=== PATIENT | male | born 1960 | race Caucasian/White ===

== ENCOUNTER 2019-01-10 15:43 | Emergency (ER) | payer BC, SELFPAY ==
[2019-01-10 15:47] VITALS: BP 139/67; PULSE 74; RESP 18; TEMP 36.8; O2SAT 97; BMI 26.6
--- NOTE | 2019-01-10 15:55 | ED_ITS ---
HPI - General Adult General Chief complaint: Trauma Stated complaint: fell off ladder Time Seen by Provider: 01/10/19 15:50 Source: patient Mode of arrival: Wheelchair Limitations: no limitations History of Present Illness HPI narrative: Patient is a 58-year-old male who was on a ladder when the ladder slipped out from under him. He states that he landed on his right ankle and right knee and left hand. Has had pain in his right knee and right ankle since then. He states that his left hand has improved since the time of the fall. Occurred several hours prior to arrival here in the emergency department. He did not hit his head. Has chronic neck pain and there is no change in this. Patient states that he fell 7 8 ft but he is unsure. Modified trauma was called. Related Data Home Medications Medication Instructions Recorded Confirmed Fish Oil 1 cap PO DAILY 01/10/19 01/10/19 divalproex 1,000 mg PO QPM 01/10/19 01/10/19 divalproex 750 mg PO QAM 01/10/19 01/10/19 melatonin 1.5 mg PO BEDTIME PRN 01/10/19 01/10/19 Allergies Allergy/AdvReac Type Severity Reaction Status Date / Time Penicillins [PENICILLINS] Allergy Unknown Verified 01/10/19 16:01 Review of Systems Constitutional Constitutional: Denies fever(s) and Denies headache(s) ENT Ears, Nose, Mouth, and Throat: Denies headache(s) Cardiovascular Cardiovascular: Denies chest pain and Denies dyspnea Respiratory Respiratory: Denies dyspnea Gastrointestinal Gastrointestinal: Denies abdominal pain, Denies nausea and Denies vomiting Musculoskeletal Comments: Left hand pain, right knee pain, right ankle pain Integumentary/Breasts Skin/Breast: Denies lesions and Denies rash Neurologic Neurologic: Denies behavioral changes and Denies headache(s) Psychiatric Psychiatric: Denies behavioral changes Hematologic/Lymphatic Hematologic/Lymphatic: Denies easy bleeding and Denies easy bruising Patient History Medical History Diverticulitis (Inactive) Left shoulder pain (Inactive) Tendonitis of left rotator cuff (Inactive) Social History Smoking Status: Current every day smoker Exam Initial Vital Signs Initial Vital Signs: Vital Signs Temperature 98.2 F 01/10/19 15:47 Pulse Rate 74 01/10/19 15:47 Respiratory Rate 18 01/10/19 15:47 Blood Pressure 139/67 01/10/19 15:47 Pulse Oximetry 97 01/10/19 15:47 Const General: cooperative and comfortable Orientation: alert, awake and oriented x3 HENMT Head: normal to inspection and normocephalic Resp Effort & Inspection: normal respiratory effort Auscultation: clear to auscultation bilaterally Cardio Rate: regular rate Rhythm: regular rhythm Back/Spine/Pelvis Cervical Spine: No collar present, No cervical spinal tenderness and No step off deformity Skin Other: Superficial abrasion to the outside left ankle Neuro General: alert, awake and oriented x3 Extrem Other: Patient with tenderness to palpation throughout the right knee. He is able to do a straight leg raise. Patient also with tenderness to palpation throughout the right ankle. Pain with flexion and extension. Patient does have some tenderness to palpation of the palm of his left hand however is able to flex and extend his wrist and his fingers unremarkable. The rest of his musculoskeletal exam is unremarkable Psych Appearance: grossly normal and well kempt Procedures Orthopedic Splinting/Casting Injury #1: Side: right Lower Extremity Injury Location: knee Lower Extremity Immobilizer: Tim wrap Other Orthopedic Equipment: crutches Post splinting neuro exam: intact Post splinting vascular exam: intact Placed by: Nursing Injury #2: Side: right Lower Extremity Injury Location: ankle Lower Extremity Immobilizer: Tim wrap Other Orthopedic Equipment: crutches Post splinting neuro exam: intact Post splinting vascular exam: intact Placed by: Nursing Scores GCS [place] coma scale eye opening: Spontaneous Pina coma scale verbal response: Orientated Pina coma scale motor response: Obey commands [place] coma scale total score: 15 Nexus Score for C-Spine Focal Neurologic deficit present: No Midline spinal tenderness present: No Altered level of conciousness present: No Intoxication present: No Distracting Injury Present: No Nexus Criteria for C-spine: 0 Course Orders Ordered: ED Orders 01/10/19 15:55 XR ankle RT min 3V Stat XR knee RT 3V Stat Vital Signs Vital signs: Vital Signs - 8 hr 01/10/19 15:47 01/10/19 16:45 01/10/19 17:00 Temperature 98.2 F Pulse Rate 74 72 89 Respiratory Rate 18 17 18 Blood Pressure 139/67 Blood Pressure [Right Arm] 124/65 126/100 H Pulse Oximetry 97 96 98 Medical Decision Making Imaging Data Ankle x-ray: Radiologist's impression: [address] [address] XRay Report Signed Patient: Luis Angel Theodore [facility]#: [id number] : 1960Acct:[id number] Age/Sex: 58 / MDate of Service: 01/10/19 Loc: ED Accession Number: [id number] Procedure: XR ankle RT min 3V Ordering Provider: Srini Sanders D.O. PROCEDURE: XR ANKLE RT MIN 3V INDICATIONS: pain after fall TECHNIQUE: 3 views of the ankle were acquired. COMPARISON: None. FINDINGS: Bones: No fractures or dislocations. Ankle mortise is normally aligned. No suspicious bony lesions. Mild degenerative changes are present involving the tibiotalar and talonavicular joints. There may be a small developing plantar calcaneal spur. Soft tissues: No tibiotalar joint effusion. Achilles tendon appears normal. IMPRESSION: Mild degenerative changes of the right ankle. No fractures. Dictated by: Franklyn Bowman M.D. on 01/10/2019 at 15:50 Approved by: Franklyn Bowman M.D. on 01/10/2019 at 15:55 Knee x-ray: Radiologist's impression: [address] [address] XRay Report Signed Patient: Luis Angel Theodore [facility]#: [id number] : 1960Acct:[id number] Age/Sex: 58 / MDate of Service: 01/10/19 Loc: ED Accession Number: [id number] Procedure: XR knee RT 3V Ordering Provider: Srini Sanders D.O. PROCEDURE: XR KNEE RT 3V INDICATIONS: pain after fall TECHNIQUE: During views of the knee were acquired. COMPARISON: None. FINDINGS: Bones: No fractures or dislocations. No suspicious bony lesions. Degenerative changes of the patellofemoral compartment appear to be present. The joint spaces within the medial and lateral tibiofemoral compartments appear well-maintained. Soft tissues: No joint effusion. No suspicious soft tissue calcifications. Prepatellar soft tissue edema is noted. IMPRESSION: 1. Mild degenerative changes of the right knee. No fractures. 2. Prepatellar soft tissue swelling. Dictated by: Franklyn Bowman M.D. on 01/10/2019 at 15:49 Approved by: Franklyn Bowman M.D. on 01/10/2019 at 15:50 [facility] Narrative Medical decision making narrative: No fractures noted on any of his x-rays. The abrasion on his left ankle needs no intervention. He has no other musculoskeletal findings on his exam. His abdomen is tender. His neck is tender but this is not new for him. His back is unremarkable. Will hold on further workup for now. Patient was sent home with Tim bandages and crutches. He is given return precautions. He expressed understanding and agreement plan. Discharge Plan Departure Patient Disposition: Home Clinical Impression: Acute knee pain Qualifiers: Laterality: right Qualified Code(s): M25.561 - Pain in right knee Ankle pain, right Qualifiers: Chronicity: acute Qualified Code(s): M25.571 - Pain in right ankle and joints of right foot Fall Qualifiers: Encounter type: initial encounter Qualified Code(s): W19.XXXA - Unspecified fall, initial encounter Discharge Date/Time: 01/10/19 17:46 Prescriptions: No Action divalproex 500 mg tablet,delayed release (DR/EC) 1,000 mg PO QPM RF: 0 divalproex 500 mg tablet,delayed release (DR/EC) 750 mg PO QAM RF: 0 melatonin 1 mg Tablet 1.5 mg PO BEDTIME PRN (Reason: Insomnia) RF: 0 Fish Oil 1 cap PO DAILY RF: 0 Referrals: Lance Snyder MD [Primary Care Provider] -
[2019-01-10 16:45] VITALS: BP 124/65; PULSE 72; RESP 17; O2SAT 96
[2019-01-10 17:00] VITALS: BP 126/100; PULSE 89; RESP 18; O2SAT 98
== END 2019-01-10 17:46 | disposition home or self-care (01) ==
PROVIDERS: Emergency Provider Emergency Medicine; Family Provider Internal Medicine; PCP Internal Medicine
DX: M25.561 Pain in right knee (principal); M25.571 Pain in right ankle and joints of right foot; W11.XXXA Fall on and from ladder, initial encounter
CPT/HCPCS: 73562; 73610; 99283

== ENCOUNTER → 2020-08-14 09:47 | Outpatient (CLI) | payer BC, SELFPAY ==
[2020-08-14 19:27] LABS: Add Manual Diff / Slide Review NO; Basophils Absolute Auto 0 /uL (0-100); Basophils Percent Auto 0.6 % (0-2); Eosinophils Absolute Auto 100 /uL (0-450); Eosinophils Percent Auto 1.3 % (2-4); Hematocrit 46.1 % (41-53); Hemoglobin 15.6 g/dL (13.5-17.5); Lymphocytes Absolute Auto 2100 /uL (1100-4500); Lymphocytes Percent Auto 28.6 % (25-40); Mean Corpuscular HGB Conc 33.9 % (30-36); Mean Corpuscular Hemoglobin 32.3 PG (26-34); Mean Corpuscular Volume 95.4 fL (80-100); Monocytes Absolute Auto 500 /uL (0-900); Monocytes Percent Auto 6.6 % (3-14); Neutrophils Absolute Auto 4600 /uL (1500-7000); Neutrophils Percent Auto 62.9 % (50-75); Platelet Count 196 X10^3/uL (150-400); Red Blood Cell Count 4.83 X10^6/uL (4.5-5.9); Red Cell Distribution Width 14.2 % (11.6-14.8); White Blood Cell Count 7.3 X10^3/uL (4.5-11.0)
[2020-08-16 00:44] LABS: Valproic Acid (Depakene) Total 82 ug/mL (50-100)
== END ==
PROVIDERS: Family Provider Internal Medicine; PCP Internal Medicine; Referring Provider Internal Medicine; Visit Provider Internal Medicine
DX: Q07.00 Arnold-Chiari syndrome without spina bifida or hydrocephalus (principal)
CPT/HCPCS: 80164; 85025

== ENCOUNTER → 2021-04-02 10:28 | Outpatient (CLI) | payer MEDICARE, SELFPAY ==
--- NOTE | 2021-04-02 | DI.RAD.S_ITS ---
PROCEDURE: XR WRIST RT MIN 3V INDICATIONS: Pain in right wrist TECHNIQUE: 4 views of the wrist were acquired. COMPARISON: None. FINDINGS: Bones: No acute fractures or dislocations. Ununited chronic ulnar styloid fracture. No suspicious bony lesions. Scaphoid view: Negative Soft tissues: No suspicious soft tissue calcifications. IMPRESSION: No acute fracture. No osseous lesion. If symptoms and/or clinical suspicion for pathology persist, further assessment with repeat, or advanced imaging (e.g., CT, MRI, or bone scan) may be helpful for further assessment. Dictated by: Brendon Juarez M.D. on 04/02/2021 at 11:48 Approved by: Brendon Juarez M.D. on 04/02/2021 at 11:48
--- NOTE | 2021-04-02 | DI.RAD.S_ITS ---
PROCEDURE: XR WRIST LT MIN 3V INDICATIONS: Pain in left wrist TECHNIQUE: 4 views of the wrist were acquired. COMPARISON: None. FINDINGS: Bones: No fractures or dislocations. No suspicious bony lesions. Scaphoid view: Negative Soft tissues: No suspicious soft tissue calcifications. IMPRESSION: No acute fracture. No osseous lesion. If symptoms and/or clinical suspicion for pathology persist, further assessment with repeat, or advanced imaging (e.g., CT, MRI, or bone scan) may be helpful for further assessment. Dictated by: Brendon Juarez M.D. on 04/02/2021 at 11:48 Approved by: Brendon Juarez M.D. on 04/02/2021 at 11:48
== END ==
PROVIDERS: Family Provider Internal Medicine; PCP Internal Medicine; Referring Provider Internal Medicine; Visit Provider Internal Medicine
DX: M25.531 Pain in right wrist (principal); M25.532 Pain in left wrist
CPT/HCPCS: 73110

== ENCOUNTER 2022-07-09 09:48 | Day surgery (SDC) | payer MEDICARE, SELFPAY ==
[2022-07-07 14:13] VITALS: BMI 27.4
[2022-07-09 10:05] VITALS: BP 136/74; PULSE 72; RESP 16; TEMP 36.1; O2SAT 99; BMI 27.4
[2022-07-09] MEDS: LACTATED RINGERS 1,000 ML 42 ML IV (10:22)
--- NOTE | 2022-07-09 11:19 | PM.PREOP ---
Pre-operative Note Interval Note History & Physical reviewed/Exam performed by Physician: Yes Changes to H&P: No
--- NOTE | 2022-07-09 11:19 | PM.OP.1 ---
Operative Date/Time/Diagnoses Date of procedure: 07/09/22 Time of procedure: 11:19 Pre-op diagnosis: Left fifth hammertoe and corn pain Post-op diagnosis: same Procedure & Clinicians Procedure: Left fifth toe amputation (93737) Same procedure as scheduled: Yes Indications: 61 yo male with ongoing painful corn development and inflammation to the left fifth hammertoe. Conservative measures failed to alleviate his pain and he wished to have surgical intervention at this time. We spoke about the risks, potential complications, alternatives, and expected outcomes. Consent was signed, no contraindications to the procedure at this time. Surgeon: Linsey Billings Click Yes if Unassisted: Yes Anesthesia Type: General Operative Notes Closure Type: primary Specimen(s): none sent Estimated Blood Loss (mL): 10 Blood products transfused: none Tourniquet time (min): 7 Procedure in detail: The patient was brought to the operating room and placed on the operating table in the supine position. The tourniquet was placed about the left ankle. Well padded, appropriately aligned. After induction of general anesthesia, local anesthesia was obtained to the left fifth toe region. The foot and ankle were prepped and draped in the usual aseptic manner. The tourniquet was inflated. After check of anesthesia a full-thickness circumferential incision was made around the fifth toe. This was then continued into the metatarsophalangeal joint linearly. The toe was carefully disarticulated. The area was irrigated with copious amounts of normal sterile saline. No necrotic tissue or abscesses were noted. Tourniquet was deflated, a prompt hyperemic response was seen to the foot. Skin and tissue was revised to allow for appropriate closure. Vessels were cauterized and ligated as necessary. 4-0 Vicryl was used subcutaneously for closure and 4-0 nylon for the skin. The area was dressed with a sterile lightly compressive dressing. Complications: none Post-operative Condition: stable Disposition: PACU Plan for aftercare: Following a period of postoperative monitoring, the patient will be discharged to home on written and oral postoperative instructions including keeping the dressing dry and intact, no greater than 50% weight to the surgical foot, icing behind the knee of the operative foot is appropriate, and elevating the foot when seated home. DVT prevention techniques have been reviewed. For the 1st postoperative visit the dressing will be changed and close to the 3rd postoperative week we will likely remove the sutures.
[2022-07-09] MEDS: CLINDAMYCIN 600 MG/50 ML PIGGYBACK 50 MG IV (11:38)
--- NOTE | 2022-07-09 11:57 | SUR.OPER ---
Supine on padded OR bed, head on pillow, arms secured on padded arm boards at <90 degrees abduction, legs uncrossed, safety belt at thigh, tape over blanket over lower legs. Gel bump under left hip and under left thigh.
[2022-07-09] MEDS: LIDOCAINE 2% INJ MDV 20ML 20 ML INJ (12:03)
[2022-07-09] MEDS: BUPIVACAINE 0.5% (PF) 10 ML VIAL INJ (12:06)
[2022-07-09 12:37] VITALS: BP 141/74; PULSE 76; RESP 16; TEMP 36.2; O2SAT 98
[2022-07-09 12:45] VITALS: BP 141/74; PULSE 77; RESP 16; O2SAT 98
[2022-07-09 12:46] VITALS: BP 133/77; PULSE 81; RESP 16; TEMP 36.2; O2SAT 98
[2022-07-09 12:50] VITALS: BP 141/74; PULSE 80; RESP 16; O2SAT 99
[2022-07-09 13:09] VITALS: BP 134/74; PULSE 78; RESP 16; TEMP 36.8; O2SAT 98
== END 2022-07-09 13:15 | disposition home or self-care (01) ==
PROVIDERS: Family Provider Internal Medicine; PCP Internal Medicine; Referring Provider Podiatrist; Visit Provider Podiatrist
PROC: (CPT 28820; principal; 2022-07-09 11:15)
DX: M20.42 Other hammer toe(s) (acquired), left foot (principal); L84 Corns and callosities
CPT/HCPCS: 28820; J1100; J1885; J2405; J2704; J3010

== ENCOUNTER → 2024-03-09 08:49 | Outpatient (CLI) | payer MEDICARE, SELFPAY ==
--- NOTE | 2024-03-09 08:51 | DI.CT.S_ITS ---
PROCEDURE: CT LUNG LOW DOSE SCREENING INDICATIONS: current smoker,lung cancer screening TECHNIQUE: Noncontrast 2.0-2.5 mm thick sections acquired from the pulmonary apices to the posterior costophrenic angles. 7 mm thick axial MIP, and 5 mm coronal and sagittal reformats were then acquired. For radiation dose reduction, the following was used: automated exposure control, adjustment of mA and/or kV according to patient size. COMPARISON: None. FINDINGS: Image quality: Diagnostic. Lungs and Pleura: Central and peripheral airways are normal caliber. Mild bilateral central and lower lung bronchial wall thickening. No bronchiectasis. Mild emphysematous changes. No suspicious lung nodules or masses. No ground-glass opacities, consolidations, pleural effusions, or pleural calcification. Lower Neck: No enlarged lymph nodes. Thyroid: Normal CT appearance. Axillae: No enlarged lymph nodes. Chest Wall: No suspicious chest wall mass. Bones: No suspicious bone lesions. Mild degenerative changes in the thoracic spine. Heart: Heart size is normal. No pericardial effusion. Thoracic Vessels: The aorta and pulmonary arteries demonstrate normal size. Mediastinum and Emma: No enlarged lymph nodes. Esophagus: No wall thickening. No hiatal hernia. Upper Abdomen: Visualized upper abdomen solid organs and bowel loops appear normal. IMPRESSION: No suspicious pulmonary nodules. LUNG-RADS 1; continued annual screening, if eligible. Clinically Significant Non-pulmonary Findings: None. Dictated by: Birdie Armstrong M.D. on 03/09/2024 at 10:30 Approved by: Birdie Armstrong M.D. on 03/09/2024 at 10:36
== END ==
PROVIDERS: Family Provider Internal Medicine; PCP Physician Assistant; Referring Provider Physician Assistant; Visit Provider Physician Assistant
DX: Z12.2 Encounter for screening for malignant neoplasm of respiratory organs; F17.200 Nicotine dependence, unspecified, uncomplicated
CPT/HCPCS: 71271